=== PATIENT | female | born 1930 | race Caucasian/White ===

== ENCOUNTER 2017-02-02 12:40 | Emergency (ER) | payer MEDICARE ==
--- NOTE | ~2017-02-02 | CR156 ---
[facility] A Service of [facility] & [facility] RADIOLOGY TEXT RESULTS PATIENT: ZENA CLAUDIO LOCATION: [facility] : [birth year] UNIT #: [id number] AGE: [address]: Chen Aguayo SEX: F ORDER DR: [id number] [facility] [address] [place], [place] [address] [id number] E MR#: [id number] Acc #: [id number] NAME: ZENA CLAUDIO. : 1930 SEX: F STUDY DATE/TIME: 02/03/2017 UNIT: [facility] ROOM: STUDY DESCRIPTION: CR Humerus Min 2 View Lt Attending Physician: Chen Aguayo Pa-C Ordering Physician: [facility] Primary Care Physician: Paulo James M.D. MEDICAL IMAGING REPORT This report is preliminary unless electronic signature is present EXAM Left humerus 2 views 02/02/2017 1315 hours HISTORY Patient complains of left shoulder and arm pain for 4 days following a fall 4 days ago. COMPARISON None. FINDINGS AP and lateral views of the humerus demonstrate a comminuted impaction proximal humeral fracture at the neck of the humerus. Distal humerus is intact. IMPRESSION Acute comminuted impacted proximal humeral fracture. Dictated by... Monica Luna M.D. THIS IS AN ELECTRONICALLY VERIFIED REPORT Monica Luna M.D. at 02/03/2017 9:48 AM ALEE/samantha TD: 02/03/2017 00:22 JOB #: [id number] MEDICAL IMAGING REPORT Page 1 of 1 COPY
--- NOTE | ~2017-02-02 | CR229 ---
[facility] A Service of [facility] & [facility] RADIOLOGY TEXT RESULTS PATIENT: ZENA CLAUDIO LOCATION: [facility] : [birth year] UNIT #: [id number] AGE: [address]: Chen Aguayo SEX: F ORDER DR: [id number] [facility] [address] [place], [place] [address] [id number] E MR#: [id number] Acc #: [id number] NAME: ZENA CLAUDIO. : 1930 SEX: F STUDY DATE/TIME: 02/02/2017 1314 UNIT: [facility] ROOM: STUDY DESCRIPTION: CR Shoulder Min 2 View Lt Attending Physician: Chen Aguayo Pa-C Ordering Physician: Ed Jong Butterfield M.D. Primary Care Physician: Paulo James M.D. MEDICAL IMAGING REPORT This report is preliminary unless electronic signature is present EXAM Left shoulder, 2 views, 02/02/2017, 1314 hours. CLINICAL HISTORY 87-year-old who fell 4 days ago complaining of left shoulder pain. FINDINGS AP views in internal-external rotation and a scapula Y-view demonstrate a comminuted proximal humeral fracture with an intraarticular joint effusion resulting in inferior displacement of the humerus, likely due to hematoma. The fracture is comminuted. The articular surface appears to be intact but CT may be helpful. The upper ribs and clavicle are normal. IMPRESSION There is an acute comminuted fracture of the proximal humerus with impaction. The humerus is displaced somewhat inferiorly. The articular surface appears to be intact, although CT may be more sensitive. STAT * RESULT Dictated by... Monica Luna M.D. THIS IS AN ELECTRONICALLY VERIFIED REPORT Monica Luna M.D. at 02/02/2017 2:31 PM ALEE/dariela TD: 02/02/2017 13:47 JOB #: [id number] MEDICAL IMAGING REPORT [facility] A Service of [facility] & [facility] RADIOLOGY TEXT RESULTS PATIENT: ZENA CLAUDIO [id number] [birth year] UNIT #: [id number] AGE: [address]: Chen Aguayo SEX: F ORDER DR: Page 1 of 1 COPY
[~2017-02-02 12:40] MED LIST: ACETAMINOPHEN PO; ASPIRIN PO; CRESTOR PO; HCTZ PO; LOTREL PO; METAMUCIL0.52 G PO; MULTI-VITAMIN1 TAB PO
== END 2017-02-02 14:39 | disposition home or self-care (01) ==
LOC: CED 12:40 → CFTX 12:40
DX: S42.202A Unspecified fracture of upper end of left humerus, initial encounter for closed fracture (principal); I10 Essential (primary) hypertension; F17.200 Nicotine dependence, unspecified, uncomplicated; W01.0XXA Fall on same level from slipping, tripping and stumbling without subsequent striking against object, initial encounter; Y92.009 Unspecified place in unspecified non-institutional (private) residence as the place of occurrence of the external cause
CPT/HCPCS: 73030; 73060; 99283